=== PATIENT | female | born 1990 | race Caucasian/White ===

== ENCOUNTER 2020-02-18 09:58 | Emergency (ER) | payer MEDICAID ==
[~2020-02-18] VITALS: Ht 167.6 cm; Wt 70.0 kg
[2020-02-18] MEDS ORDERED: SODIUM CHLORIDE 0.9% 1,000 ML IV ONE (10:19)
[2020-02-18] MEDS ORDERED: LORAZEPAM 2MG/ML CPJ IM STA (10:19)
[2020-02-18] MEDS ORDERED: HALOPERIDOL LACTATE 5MG/ML VIAL IM STA (10:19)
[2020-02-18 10:52] LABS: BASOPHILS % 0.4 % (0.0-2.0); EOSINOPHILS % 0.7 % (0.0-5.0); HEMATOCRIT. 33.7 % (36.0-48.0); HEMOGLOBIN. 11.5 g/dL (12.0-16.0); LYMPHOCYTES % 16.4 % (20.0-50.0); MEAN CORPUSCULAR HEMOGLOBIN 30.9 pg (28.0-32.0); MEAN CORPUSCULAR VOLUME 90.2 fL (81.0-99.0); MEAN PLATELET VOLUME 7.3 fl (7.4-10.4); MONOCYTES % 5.3 % (2.0-8.0); NEUTROPHILS % 77.2 % (40.0-76.0); PLATELET 339 x1000/uL (130-400); RED BLOOD CELL COUNT 3.74 mill/uL (4.2-5.4)
[2020-02-18] MEDS ORDERED: HALOPERIDOL LACTATE 5MG/ML VIAL IM NR (10:52)
[2020-02-18 10:59] LABS: CHLORIDE 105 mEq/L (98-107)
[2020-02-18 11:04] LABS: ETHANOL BLOOD < 10 mg/dL
[2020-02-18 11:19] LABS: HCG SCREEN NEGATIVE
[2020-02-18] MEDS ORDERED: KCL 10MEQ/50ML PREMIX 50 ML IV NR (12:00)
[2020-02-18 12:32] LABS: CLARITY URINE CLOUDY (CLEAR); COLOR URINE DK YELLOW (YELLOW); KETONES URINE TRACE (NEGATIVE); LEUKOCYTE ESTERASE URINE 3+ (NEGATIVE); NITRITE URINE NEGATIVE (NEGATIVE); OCCULT BLOOD URINE NEGATIVE (NEGATIVE); PH URINE 7.5 (4.5-8.0); PROTEIN URINE 1+ (NEGATIVE); SPECIFIC GRAVITY URINE 1.028 (1.005-1.030)
[2020-02-18 12:43] LABS: *BARBITURATES SCREEN URINE NEGATIVE (NEGATIVE); *BENZODIAZEPINES SCREEN URINE NEGATIVE (NEGATIVE); METHADONE URINE SCREEN NEGATIVE (NEGATIVE)
[2020-02-18 12:44] LABS: OPIATES URINE SCREEN NEGATIVE (NEGATIVE); PHENCYCLIDINE URINE SCREEN NEGATIVE (NEGATIVE)
[2020-02-18 12:45] LABS: *AMPHETAMINES SCREEN URINE PRESUMTIVE POSITIVE (NEGATIVE); *COCAINE SCREEN URINE PRESUMTIVE POSITIVE (NEGATIVE)
[2020-02-18 12:46] LABS: CANNABINOID URINE SCREEN PRESUMTIVE POSITIVE (NEGATIVE)
[2020-02-18] MEDS ORDERED: CEFTRIAXONE 1 G PREMIX 50 ML IV ONE (13:15)
[2020-02-19] MEDS ORDERED: LORAZEPAM 2MG/ML CPJ IM ONE (22:00)
[2020-02-23 13:02] LABS: CHLORIDE 105 mEq/L (98-107)
[2020-02-23 21:00] VITALS: BP 122/76
== END 2020-02-23 21:42 ==
LOC: EDBD 09:58 → ER 09:58
DX: F23 Brief psychotic disorder (principal); N39.0 Urinary tract infection, site not specified; E87.6 Hypokalemia; F15.10 Other stimulant abuse, uncomplicated; F16.10 Hallucinogen abuse, uncomplicated; F12.10 Cannabis abuse, uncomplicated; F14.10 Cocaine abuse, uncomplicated; Z78.1 Physical restraint status; Z75.1 Person awaiting admission to adequate facility elsewhere
CPT/HCPCS: 36415; 80048; 80053; 80305; 80320; 81003; 82962; 84703; 85025; 87077; 87086; 87186; 93005; 96361; 96365; 96367; 96372; 99285; J0696; J2060; J3480; J7030; J1630; G0480